=== PATIENT | male | born 1940 | race African-American/Black ===

== ENCOUNTER → 2017-08-17 | Outpatient (CLI) | payer OTHER ==
--- NOTE | ~2017-08-17 | MR113 ---
[facility] A Service of [facility] RADIOLOGY TEXT RESULTS PATIENT: ROC DAILEY LOCATION: [facility] : 40 UNIT #: [id number] AGE: [address]: HAYDEE ZARATE MD SEX: M ORDER DR: [id number] [facility] [address] [place], [place] [address] [id number] O MR#: [id number] Acc #: [id number] NAME: ROC DAILEY : 1940 SEX: M STUDY DATE/TIME: 08/17/2017 13:07 UNIT: [facility] ROOM: STUDY DESCRIPTION: MR Lumbar Wo Contrast Attending Physician: Haydee Zarate M.D. Referring Physician: Haydee Zarate M.D. Ordering Physician: Haydee Zarate M.D. Primary Care Physician: Haydee Zarate M.D. MRI CENTER REPORT This report is preliminary unless electronic signature is present. EXAM MRI of the lumbar spine without contrast, dated 08/17/2017. COMPARISON CT lumbar spine without contrast, dated 12/29/2005, and whole body bone scan dated 12/28/2016. COMPARISON No prior MRI lumbar spine studies. HISTORY Low back pain with bilateral sciatica for a month. FINDINGS Multisequence, multiplanar imaging of the lumbar spine was obtained without contrast. There is mild retrolisthesis of L2 with respect to L3. Degenerative disc disease and endplate changes are noted at multiple levels of the lumbar spine. Minimal edema is noted at 4-5, L2-3 levels. Schmorl nodes are at multiple levels throughout the lumbar spine along with fatty matter conversion and fatty endplate Modic type 2 changes. Conus terminates at T12-L1. Signal of conus and cauda equina are within normal limits. There is mild prominence of posterior epidural fat which causes mass effect on the posterior aspect of the thecal sac from the level of L1-2 to the level of L4-5 suspicious for a mild epidural lipomatosis. L1-2: Disc osteophyte complex is seen which is asymmetrically prominent in the right foraminal to extraforaminal region suggestive of superimposed broad-based protrusion. It extends towards the right subarticular region. Mild left, and favl-fz-oymboppm right neural foraminal narrowing is seen. Zkdr-il-teoyjsnl bilateral facet changes are noted with borderline size canal. [facility]. [facility] A Service of [facility] RADIOLOGY TEXT RESULTS PATIENT: ROC DAILEY LOCATION: [facility] : 40 UNIT #: [id number] AGE: [address]: HAYDEE ZARATE MD SEX: M ORDER DR: L2-3: Moderate disc bulge which is asymmetrically prominent in bilateral foraminal to extraforaminal regions, likely broad-based protrusions. It is worse on the right. Ewykpzgy-cm-chadcx right and moderate left neural foraminal narrowing are noted with moderate bilateral facet hypertrophic changes, yxajodgl-of-tsqmsl bilateral ligamentum flavum thickening, severe canal stenosis, moderate to severe bilateral lateral recess stenosis. L3-4: Moderate disc bulge which is asymmetrically prominent in bilateral foraminal to extraforaminal regions particularly in the right suggestive of broad-based protrusions. Xbzv-wa-tbfgdizb right and mild left neural foraminal narrowing are noted with tnzn-og-vamuksfm bilateral facet changes. Moderate bilateral ligamentum flavum thickening is seen with toog-bs-jytsdptg canal stenosis and mild bilateral lateral recess stenosis. L4-5: Disc osteophyte complex with moderate bilateral facet changes, avawvjcp-jw-vsudiw right and moderate left lateral recess stenosis. Moderate bilateral neural foraminal narrowing is also seen. L5-S1: Disc osteophyte complex with moderate bilateral facet hypertrophic changes. There is probably superimposed left subarticular protrusion which extends to the left central and left foraminal region with mild left lateral recess stenosis. Gsfwtttl-xz-elfxhp bilateral neural foraminal narrowing is seen. No canal stenosis. IMPRESSION 1. Degenerative changes are noted at multiple levels with varying degrees of canal stenosis, lateral recess stenosis and neural foraminal narrowing as described above, worse at L2-3 followed by L4-5. Dictated by... Robert Montelongo M.D. THIS IS AN ELECTRONICALLY VERIFIED REPORT Robert Montelongo M.D. at 08/25/2017 6:59 AM CPR/jt TD: 08/18/2017 22:17 JOB #: [id number] MRI CENTER REPORT Page 1 of 1 COPY
== END | disposition home or self-care (01) ==
LOC: CMRI 12:11
DX: M47.26 Other spondylosis with radiculopathy, lumbar region (principal); M48.06 Spinal stenosis, lumbar region; M99.83 Other biomechanical lesions of lumbar region
CPT/HCPCS: 72148